=== PATIENT | female | born 1995 | race Hispanic/Latino ===

== ENCOUNTER 2024-02-10 11:17 | Outpatient (CLI) | payer OTHER ==
[~2024-02-10] VITALS: Ht 162.6 cm; Wt 75.4 kg
[2024-02-10] MEDS ORDERED: ASPI81CH33 PO (11:50)
[2024-02-10] MEDS ORDERED: PRENTAB9 PO (11:50)
[2024-02-10] MEDS ORDERED: FOLI400T13 PO (11:50)
[2024-02-10] MEDS ORDERED: GNP250TA9 PO (11:50)
== END 2024-02-10 12:15 | disposition home or self-care (01) ==
LOC: M LDO 11:17
PROVIDERS: ATTEND Obstetrics & Gynecology
DX: O26.892 Other specified pregnancy related conditions, second trimester (principal); R25.2 Cramp and spasm; R10.2 Pelvic and perineal pain; Z3A.19 19 weeks gestation of pregnancy

== ENCOUNTER 2024-03-09 21:05 | Outpatient (CLI) | payer OTHER ==
[~2024-03-09] VITALS: Ht 162.6 cm; Wt 78.3 kg
[~2024-03-09 21:05] MED LIST: ASPI81CH33 PO; FOLI400T13 PO; GNP250TA9 PO; PRENTAB9 PO
[2024-03-09 21:20] VITALS: BP 130/75
[2024-03-09] MEDS ORDERED: PHEN26CR PR (22:05)
[2024-03-09] MEDS ORDERED: COLA100C5 PO (22:05)
== END 2024-03-09 22:00 | disposition home or self-care (01) ==
LOC: M LDO 21:05
PROVIDERS: ATTEND Obstetrics & Gynecology
DX: O26.892 Other specified pregnancy related conditions, second trimester (principal); O22.42 Hemorrhoids in pregnancy, second trimester; N89.8 Other specified noninflammatory disorders of vagina; Z3A.23 23 weeks gestation of pregnancy
CPT/HCPCS: 59025; G0463

== ENCOUNTER 2024-04-25 12:31 | Outpatient (CLI) | payer OTHER ==
[~2024-04-25] VITALS: Ht 162.6 cm; Wt 81.1 kg
[~2024-04-25 12:31] MED LIST changes: +COLA100C5 PO; +PHEN26CR PR
[2024-04-25 14:13] LABS: HEMATOCRIT 38.5 % (36.0-47.0); HEMOGLOBIN 13.1 g/dl (12.0-15.5); MEAN CORPUSCULAR HEMOGLOBIN 30.8 pg (27.0-33.0); MEAN CORPUSCULAR VOLUME 90.6 fl (80.0-96.0); PLATELET COUNT, AUTOMATED 157 10^3/uL (150-450); RED BLOOD COUNT 4.25 10^6/uL (4.00-5.40); WHITE BLOOD COUNT 11.6 10^3/uL (4.0-10.0)
[2024-04-25 14:42] LABS: BLOOD UREA NITROGEN 17 MG/DL (9-23); CALCIUM LEVEL 8.6 MG/DL (8.5-10.1); CARBON DIOXIDE LEVEL 21 MMOL/L (20-31); CHLORIDE LEVEL 110 MMOL/L (98-107); CREATININE FOR GFR 0.58 MG/DL (0.55-1.30); GLOMERULAR FILTRATION RATE > 60.0 (>60); GLUCOSE, FASTING 91 MG/DL (60-100); POTASSIUM SERUM 4.2 MMOL/L (3.5-5.1); SODIUM LEVEL 137 MMOL/L (136-145)
[2024-04-25] MEDS ORDERED: COLA100C5 PO (18:16)
== END 2024-04-25 18:10 | disposition home or self-care (01) ==
LOC: M LDO 12:31
PROVIDERS: ATTEND Obstetrics & Gynecology
DX: O26.893 Other specified pregnancy related conditions, third trimester (principal); O24.419 Gestational diabetes mellitus in pregnancy, unspecified control; R55 Syncope and collapse; Z3A.30 30 weeks gestation of pregnancy
CPT/HCPCS: 36415; 59025; 70486; 80048; 85027; 85460; G0463

== ENCOUNTER → 2024-04-30 | Outpatient (CLI) | payer OTHER | LOC: M WHC 07:03 | PROVIDERS: ATTEND Nurse Practitioner Family | DX: O24.419 Gestational diabetes mellitus in pregnancy, unspecified control (principal); Z3A.31 31 weeks gestation of pregnancy ==

== ENCOUNTER → 2024-05-27 | Outpatient (CLI) | payer OTHER | LOC: M RAD 07:26 | PROVIDERS: ATTEND Nurse Practitioner Family | DX: Z34.83 Encounter for supervision of other normal pregnancy, third trimester (principal) ==

== ENCOUNTER → 2024-06-04 | Outpatient (REF) | payer OTHER ==
[~2024-06-04] MED LIST changes: +ACET-897 PO; +DOCU100C16 PO; +IBUP80TA PO; +OXYC1TAB23 PO; +PERCOCET PO
== END ==
LOC: M SFHCWAGY 12:44
PROVIDERS: ATTEND Nurse Practitioner Family
DX: Z36.89 Encounter for other specified antenatal screening (principal); Z3A.36 36 weeks gestation of pregnancy

== ENCOUNTER 2024-06-12 10:52 | Inpatient (IN) | payer OTHER ==
[2024-06-12] VITALS (28 sets, daily range): BP systolic 131–187; BP diastolic 67–98
[~2024-06-12] VITALS: Ht 162.6 cm; Wt 85.1 kg
[~2024-06-12 10:52] MED LIST changes: -ACET-897 PO; -DOCU100C16 PO; -IBUP80TA PO; -OXYC1TAB23 PO; -PERCOCET PO
[2024-06-12] MEDS ORDERED: ACET-897 PO (11:14)
[2024-06-12 12:17] LABS: TOTAL PROTEIN,RANDOM URINE 26.8 MG/DL (0.0-14.0)
[2024-06-12 12:22] LABS: CREATININE,RANDOM URINE 167.5 MG/DL
[2024-06-12 12:58] LABS: URIC ACID 7.1 MG/DL (3.1-7.8)
[2024-06-12 13:00] LABS: LDH LACTATE DEHYDROGENASE 266 U/L (120-246)
[2024-06-12 13:01] LABS: ALT/SGPT 38 U/L (7.0-40); AST/SGOT 47 U/L (<34); BILIRUBIN,TOTAL 0.2 MG/DL (0.3-1.2); CREATININE FOR GFR 0.82 MG/DL (0.55-1.30); GLOMERULAR FILTRATION RATE > 60.0 (>60)
[2024-06-12 15:41] LABS: HEMATOCRIT 38.2 % (36.0-47.0); MEAN CORPUSCULAR HEMOGLOBIN 30.1 pg (27.0-33.0); MEAN CORPUSCULAR VOLUME 88.4 fl (80.0-96.0); RED BLOOD COUNT 4.32 10^6/uL (4.00-5.40)
[2024-06-12 15:59] LABS: PLATELET COUNT, AUTOMATED 90 10^3/uL (150-450)
[2024-06-12 16:33] LABS: HIV 1&2 SCREEN NEGATIVE (NEGATIVE)
[2024-06-12] MEDS ORDERED: OXYTOCIN INJ 10UNITS/ML 1ML VIAL IV PRN (16:35)
[2024-06-12] MEDS ORDERED: miSOPROStol 25MCG 1/4 TABLET BUC ONE (16:35)
[2024-06-12 16:41] LABS: HEPATITIS C VIRUS ABY INDEX 0.03 INDEX (<0.8)
[2024-06-12] MEDS: miSOPROStol 50MCG 1/2 TABLET BUC ONE (17:04)
[2024-06-12] MEDS ORDERED: LABETALOL 100MG/20ML VIAL As Ordered ONE (17:35)
[2024-06-12] MEDS: LABETALOL 100MG/20ML VIAL IV STA ×3 (17:50→18:31)
[2024-06-12] MEDS: LABETALOL 200 MG TAB PO SCH (21:03)
[2024-06-12] MEDS: miSOPROStol 25MCG 1/4 TABLET BUC ONE (21:10)
[2024-06-13] VITALS (53 sets, daily range): BP systolic 112–191; BP diastolic 55–95
[2024-06-13] MEDS: LABETALOL 100MG/20ML VIAL IV STA ×6 (01:38→18:53)
[2024-06-13] MEDS: miSOPROStol 25MCG 1/4 TABLET BUC ONE (02:37)
[2024-06-13] MEDS: hydrALAZINE 20MG/ML 1ML VIAL IV ONE (03:26)
[2024-06-13] MEDS ORDERED: CARBOPROST TROMETHAMINE 250 MCG/ML AMP IM PRN (08:50)
[2024-06-13] MEDS ORDERED: OXYTOCIN DRIP 30 UNITS in IV 1 EA IV PRN (08:50)
[2024-06-13] MEDS ORDERED: METHYLERGONOVINE MALEATE 0.2MG/ML 1ML VIAL IM PRN (08:50)
[2024-06-13] MEDS ORDERED: LIDOCAINE 1% MDV 20ML VIAL INFIL PRN (08:50)
[2024-06-13] MEDS ORDERED: TRANEXAMIC ACID INJection 1,000 MG in NS 100 ML IV PRN (08:50)
[2024-06-13] MEDS: miSOPROStol 50MCG 1/2 TABLET PO ONE (09:10)
[2024-06-13] MEDS: OXYTOCIN DRIP 30 UNITS in IV 1 EA IV SCH (13:13)
[2024-06-13] MEDS: LR 1,000 ML IV SCH (13:13)
[2024-06-13] MEDS ORDERED: EPIDURAL/PCA KEYS XX PRN (19:50)
[2024-06-13] MEDS ORDERED: ONDANSETRON 4MG 2ML VIAL IV PRN (19:50)
[2024-06-13] MEDS ORDERED: diphenhydrAMINE 50MG/ML VIAL IV PRN (19:50)
[2024-06-13] MEDS ORDERED: ePHEDrine SULFATE 25 MG/5 ML(5MG/ML) SYRINGE IVP PRN (19:50)
[2024-06-13] MEDS ORDERED: FENTANYL/ROPIVACAINE/NACL BAG 100 ML EPIDURAL SCH (19:50)
[2024-06-13] MEDS ORDERED: NALOXONE INJ 0.4MG/1ML VIAL IV PRN (19:50)
[2024-06-13] MEDS: MAG Sulf (L&D) 4 GM/100 ML 4 GM in IV 1 EA IV ONE (19:59)
[2024-06-13 20:05] LABS: HEMATOCRIT 37.4 % (36.0-47.0); HEMOGLOBIN 12.8 g/dl (12.0-15.5); MEAN CORPUSCULAR HEMOGLOBIN 30.3 pg (27.0-33.0); MEAN CORPUSCULAR HGB CONC 34.2 g/dl (32.0-36.5); MEAN CORPUSCULAR VOLUME 88.4 fl (80.0-96.0); RED BLOOD COUNT 4.23 10^6/uL (4.00-5.40); WHITE BLOOD COUNT 11.7 10^3/uL (4.0-10.0)
[2024-06-13 20:11] LABS: PLATELET COUNT, AUTOMATED 65 10^3/uL (150-450)
[2024-06-13] MEDS: MAG Sulf (OBGYN) 20GM/500ML 20,000 MG in IV 1 EA IV SCH (20:23)
[2024-06-13 20:26] LABS: URIC ACID 7.6 MG/DL (3.1-7.8)
[2024-06-13 20:28] LABS: LDH LACTATE DEHYDROGENASE 344 U/L (120-246)
[2024-06-13 20:35] LABS: ALT/SGPT 112 U/L (7.0-40); AST/SGOT 123 U/L (<34); BILIRUBIN,TOTAL 0.5 MG/DL (0.3-1.2); CREATININE FOR GFR 0.79 MG/DL (0.55-1.30); GLOMERULAR FILTRATION RATE > 60.0 (>60)
[2024-06-13] MEDS: ceFAZolin SODIUM 2 GM in DEXTROSE 5% (D5W) ADV/MINI-BAG 50 ML IV ONE (21:20)
[2024-06-13] MEDS: LR 500 ML IV PRN (21:45)
[2024-06-13] MEDS: BICITRA 30ML SOLN UDC PO ONE (21:46)
[2024-06-13] MEDS: AZITHROMYCIN INJ 500 MG, VIAL MATE ADAPTER 1 EACH in NS 250 ML IV ONE (21:46)
[2024-06-13] MEDS ORDERED: ONDANSETRON 4MG 2ML VIAL As Ordered ONE (22:08)
[2024-06-13] MEDS ORDERED: MORPHINE PRES-FREE INJ 10 MG/10 ML VIAL As Ordered ONE (22:08)
[2024-06-13] MEDS ORDERED: PHENYLephrine 500MCG 5ML (100MCG/ML) SYRINGE As Ordered ONE (22:25)
[2024-06-13] MEDS ORDERED: TRANEXAMIC ACID 100 MG/ML 10ML VIAL As Ordered ONE (22:25)
[2024-06-13 22:49] LABS: CORD GAS ABE A -5.9; CORD GAS ABE V -6.8; CORD GAS HCO3 A 21.9 MMOL/L; CORD GAS HCO3 V 18.5 MMOL/L; CORD GAS O2 SAT A 51.9 %; CORD GAS PCO2 V 36.7 mmHg; CORD GAS PH A 7.251 UNITS; CORD GAS PH V 7.32 UNITS; CORD GAS PO2 A 23.9 mmHg; CORD GAS PO2 V 49.6 mmHg; CORD GAS SBC A 18.6 MMOL/L; CORD GAS SBC V 18.9 MMOL/L; CORD GAS TCO2 A 23.5 MMOL/L; CORD GAS TCO2 V 19.6 MMOL/L
[2024-06-13] MEDS ORDERED: ePHEDrine SULFATE 25 MG/5 ML(5MG/ML) SYRINGE As Ordered ONE (23:00)
[2024-06-13] MEDS ORDERED: OXYTOCIN 30UNITS IN 0.9% NaCl 500ML IV BAG As Ordered ONE (23:09)
[2024-06-13] MEDS ORDERED: MOM 30ML SUSPENSION UDC PO PRN (23:25)
[2024-06-13] MEDS ORDERED: ACETAMINOPHEN 500 MG TAB PO PRN (23:25)
[2024-06-13] MEDS ORDERED: SIMETHICONE 80MG CHEW TAB PO PRN (23:25)
[2024-06-13] MEDS: LOMOTIL 2.5MG/0.025MG TABLET PO ONE (23:45)
[2024-06-14] VITALS (16 sets, daily range): BP systolic 107–134; BP diastolic 56–77; TEMP 97.6; O2SAT 96–100
[2024-06-14] MEDS ORDERED: KETOROLAC 30 MG/ML 1ML VIAL As Ordered ONE (00:49)
[2024-06-14] MEDS: KETOROLAC 30 MG/ML 1ML VIAL IV SCH (00:51)
[2024-06-14 06:22] LABS: HEMATOCRIT 35.8 % (36.0-47.0); HEMOGLOBIN 12.4 g/dl (12.0-15.5); MEAN CORPUSCULAR HEMOGLOBIN 30.6 pg (27.0-33.0); MEAN CORPUSCULAR HGB CONC 34.6 g/dl (32.0-36.5); MEAN CORPUSCULAR VOLUME 88.4 fl (80.0-96.0); RED BLOOD COUNT 4.05 10^6/uL (4.00-5.40); WHITE BLOOD COUNT 14.2 10^3/uL (4.0-10.0)
[2024-06-14 06:30] LABS: PLATELET COUNT, AUTOMATED 61 10^3/uL (150-450)
[2024-06-14] MEDS: PRENATAL VITAMINS CHEWABLE TABLET PO SCH (09:34)
[2024-06-14] MEDS: FERROUS SULFATE 325MG TAB PO SCH (09:34)
[2024-06-14] MEDS: DOCUSATE SODIUM 100MG CAPSULE PO SCH (09:34)
[2024-06-14] MEDS: RHOGAM 300MCG (1500IU) INJ IM SCH (10:57)
[2024-06-15] MEDS: IBUPROFEN 800 MG TAB PO SCH (01:51)
[2024-06-15 02:00] VITALS: BP 127/70; O2SAT 95
[2024-06-15] MEDS ORDERED: PERCOCET 5MG/325MG TAB PO PRN (04:25)
[2024-06-15] MEDS: PERCOCET 5MG/325MG TAB PO PRN (04:47)
[2024-06-15 06:00] VITALS: BP 127/63; O2SAT 96
[2024-06-15] MEDS: MEASLES,MUMPS,RUBELLA VACCINE INJ (MMR-II) SC.IMMUN ONE (09:00)
[2024-06-15 10:00] VITALS: BP 134/67; O2SAT 97
[2024-06-15 13:20] VITALS: BP 137/70; O2SAT 97
[2024-06-15] MEDS ORDERED: OXYC1TAB23 PO (14:04)
[2024-06-15] MEDS ORDERED: COLA100C5 PO (14:04)
[2024-06-15] MEDS ORDERED: IBUP80TA PO (14:04)
[2024-06-15] MEDS: BOOSTRIX VACCINE (TETANUS/DIPHTH/ACEL. PERTUSSIS) 0.5ML SYR IM.IMMUN ONE (14:30)
[2024-06-15] MEDS: FLUZONE VACCINE TRIVALENT PF(2024-25) 0.5ML SYRINGE IM.IMMUN ONE (14:30)
== END 2024-06-15 16:00 | disposition home or self-care (01) | DRG 773 ==
LOC: M LDO 10:52 → M LDI 13:22 → M OBS 06-14 15:09
PROVIDERS: ADMIT Obstetrics & Gynecology; ATTEND Obstetrics & Gynecology
PROC: 3E0P7GC Introduction of Other Therapeutic Substance into Female Reproductive, Via Natural or Artificial Opening (ICD-10-PCS; 2024-06-12)
PROC: 10D00Z1 Extraction of Products of Conception, Low, Open Approach (ICD-10-PCS; principal; 2024-06-13 22:00)
DX: O14.24 HELLP syndrome, complicating childbirth (principal); Z3A.37 37 weeks gestation of pregnancy; Z37.0 Single live birth

== ENCOUNTER 2024-06-17 20:43 | Observation (INO) | payer OTHER ==
[~2024-06-17] VITALS: Ht 162.6 cm; Wt 82.3 kg
[~2024-06-17 20:43] MED LIST changes: +ACET-897 PO; +IBUP80TA PO; +OXYC1TAB23 PO
[2024-06-17 20:56] VITALS: TEMP 98
[2024-06-17] MEDS: NIFEdipine 30MG XL TAB PO SCH (21:00)
[2024-06-17] MEDS: hydrALAZINE 20MG/ML 1ML VIAL IV ONE (21:20)
[2024-06-17 21:22] LABS: BASO # 0.1 10^3/uL (0.0-0.2); BASO % 0.5 % (0.0-1.0); EOS # 0.3 10^3/uL (0.0-0.5); EOS % 2.9 % (0.0-3.0); HEMATOCRIT 34.7 % (36.0-47.0); HEMOGLOBIN 11.6 g/dl (12.0-15.5); LYMPH # 2.6 10^3/uL (1.5-5.0); LYMPH % 24.4 % (24.0-44.0); MEAN CORPUSCULAR HEMOGLOBIN 30.6 pg (27.0-33.0); MEAN CORPUSCULAR HGB CONC 33.4 g/dl (32.0-36.5); MEAN CORPUSCULAR VOLUME 91.6 fl (80.0-96.0); MONO # 0.5 10^3/uL (0.0-0.8); MONO % 4.2 % (2.0-8.0); NEUTROPHILS # 7.3 10^3/uL (1.5-8.5); NEUTROPHILS % 67.3 % (36.0-66.0); PLATELET COUNT, AUTOMATED 179 10^3/uL (150-450); RED BLOOD COUNT 3.79 10^6/uL (4.00-5.40); WHITE BLOOD COUNT 10.8 10^3/uL (4.0-10.0)
[2024-06-17 21:40] LABS: INR 0.84; PARTIAL THROMBOPLASTIN TIME 25.9 SECONDS (24.8-34.2); PROTHROMBIN TIME 11.8 SECONDS (12.5-14.5)
[2024-06-17] MEDS: hydrALAZINE 20MG/ML 1ML VIAL IV SCH (21:49)
[2024-06-17 21:53] LABS: ALBUMIN 2.5 G/DL (3.2-5.2); ALKALINE PHOSPHATASE 122 U/L (35-104); ALT/SGPT 83 U/L (7.0-40); AST/SGOT 64 U/L (<34); BILIRUBIN,TOTAL 0.3 MG/DL (0.3-1.2); BLOOD UREA NITROGEN 13 MG/DL (9-23); CALCIUM LEVEL 8.6 MG/DL (8.5-10.1); CARBON DIOXIDE LEVEL 22 MMOL/L (20-31); CHLORIDE LEVEL 103 MMOL/L (98-107); GLOMERULAR FILTRATION RATE > 60.0 (>60); GLUCOSE, FASTING 81 MG/DL (60-100); MAGNESIUM LEVEL 1.7 MG/DL (1.8-2.4); POTASSIUM SERUM 4.7 MMOL/L (3.5-5.1); SODIUM LEVEL 137 MMOL/L (136-145); TOTAL PROTEIN 6.5 G/DL (5.7-8.2)
[2024-06-17] MEDS: IBUPROFEN 800 MG TAB PO SCH (22:00)
[2024-06-17] MEDS ORDERED: SIMETHICONE 80MG CHEW TAB PO PRN (22:20)
[2024-06-17] MEDS ORDERED: IBUP80TA PO (22:42)
[2024-06-17] MEDS ORDERED: PERCOCET PO (22:42)
[2024-06-17] MEDS ORDERED: DOCU100C16 PO (22:43)
[2024-06-17] MEDS ORDERED: HOME MED LIST COMPLETE! XX SCH (22:45)
[2024-06-17] MEDS: LR 1,000 ML IV SCH (22:57)
[2024-06-17 23:15] VITALS: BP 150/72; O2SAT 98
[2024-06-17 23:22] LABS: KETONE, URINE AUTO RFX NEGATIVE (NEGATIVE); MUCUS, URINE RFX SMALL (NEGATIVE); NITRITE, URINE AUTO RFX NEGATIVE (NEGATIVE); RBC, URINE AUTO RFX 82 /HPF (0-3); SQUAM EPITHELIAL CELL UR AURFX 7 /HPF (0-6); TRANSITIONAL EPITHELIAL AU RFX 1 /HPF
[2024-06-18] VITALS (23 sets, daily range): BP systolic 120–186; BP diastolic 58–100; O2SAT 95–98
[2024-06-18 00:01] LABS: LEUKOCYTE ESTERASE UR AUTO RFX 1+ (NEGATIVE); WBC, URINE AUTO RFX 14 /HPF (0-3)
[2024-06-18] MEDS: LABETALOL 100MG TAB PO SCH ×3 (00:14→22:58)
[2024-06-18 06:28] LABS: HEMATOCRIT 30.9 % (36.0-47.0); HEMOGLOBIN 10.4 g/dl (12.0-15.5); MEAN CORPUSCULAR HEMOGLOBIN 30.4 pg (27.0-33.0); MEAN CORPUSCULAR HGB CONC 33.7 g/dl (32.0-36.5); MEAN CORPUSCULAR VOLUME 90.4 fl (80.0-96.0); PLATELET COUNT, AUTOMATED 185 10^3/uL (150-450); RED BLOOD COUNT 3.42 10^6/uL (4.00-5.40); WHITE BLOOD COUNT 8.5 10^3/uL (4.0-10.0)
[2024-06-18] MEDS: DOCUSATE SODIUM 100MG CAPSULE PO SCH (08:10)
[2024-06-18] MEDS: NIFEdipine 30MG XL TAB PO SCH (17:43)
[2024-06-18] MEDS: hydrALAZINE 20MG/ML 1ML VIAL IV STA ×2 (19:31→21:16)
[2024-06-19 06:01] VITALS: BP 125/72; O2SAT 100
[2024-06-19 06:32] VITALS: BP 125/72
[2024-06-19 06:49] LABS: HEMATOCRIT 32.3 % (36.0-47.0); HEMOGLOBIN 10.8 g/dl (12.0-15.5); MEAN CORPUSCULAR HEMOGLOBIN 30.5 pg (27.0-33.0); MEAN CORPUSCULAR HGB CONC 33.4 g/dl (32.0-36.5); MEAN CORPUSCULAR VOLUME 91.2 fl (80.0-96.0); PLATELET COUNT, AUTOMATED 233 10^3/uL (150-450); RED BLOOD COUNT 3.54 10^6/uL (4.00-5.40)
[2024-06-19 07:03] LABS: URIC ACID 6.1 MG/DL (3.1-7.8)
[2024-06-19 07:05] LABS: LDH LACTATE DEHYDROGENASE 332 U/L (120-246)
[2024-06-19 07:06] LABS: ALT/SGPT 56 U/L (7.0-40); AST/SGOT 23 U/L (<34); BILIRUBIN,TOTAL 0.3 MG/DL (0.3-1.2); GLOMERULAR FILTRATION RATE > 60.0 (>60)
[2024-06-19 10:00] VITALS: BP 144/82; O2SAT 97
[2024-06-19] MEDS ORDERED: LABE100T6 PO (12:21)
[2024-06-19] MEDS ORDERED: NIFE1TAB52 PO (12:21)
== END 2024-06-19 13:30 | disposition home or self-care (01) ==
LOC: M ED 20:43 → INTOOBSV 20:44 → M OBS 20:44
PROVIDERS: ADMIT Obstetrics & Gynecology; ATTEND Obstetrics & Gynecology
DX: O14.25 HELLP syndrome, complicating the puerperium (principal); Z79.899 Other long term (current) drug therapy
CPT/HCPCS: 36415; 71045; 80053; 81001; 82247; 83615; 83735; 84450; 84460; 84484; 84550; 85025; 85027; 85384; 85610; 85730; 87086; 87486; 87581; 87633; 87798; 93005; 96361; 96374; 96376; 99285; J0360

== ENCOUNTER 2024-07-19 11:24 | Emergency (ER) | payer OTHER ==
[~2024-07-19] VITALS: Ht 162.6 cm; Wt 75.3 kg
[~2024-07-19 11:24] MED LIST changes: +DOCU100C16 PO; +LABE100T6 PO; +NIFE1TAB52 PO; +PERCOCET PO
[2024-07-19 11:29] VITALS: TEMP 97.7
[2024-07-19 14:28] VITALS: BP 116/69; O2SAT 96
[2024-07-19 15:05] LABS: BASO # 0.1 10^3/uL (0.0-0.2); BASO % 1.1 % (0.0-1.0); EOS # 0.8 10^3/uL (0.0-0.5); HEMATOCRIT 39.7 % (36.0-47.0); HEMOGLOBIN 12.7 g/dl (12.0-15.5); LYMPH # 2.2 10^3/uL (1.5-5.0); LYMPH % 29.4 % (24.0-44.0); MEAN CORPUSCULAR HEMOGLOBIN 29.2 pg (27.0-33.0); MEAN CORPUSCULAR VOLUME 91.3 fl (80.0-96.0); MONO # 0.4 10^3/uL (0.0-0.8); MONO % 5.1 % (2.0-8.0); NEUTROPHILS % 53.1 % (36.0-66.0); PLATELET COUNT, AUTOMATED 228 10^3/uL (150-450); RED BLOOD COUNT 4.35 10^6/uL (4.00-5.40); WHITE BLOOD COUNT 7.4 10^3/uL (4.0-10.0)
[2024-07-19 15:35] LABS: ALBUMIN 3.9 G/DL (3.2-5.2); ALKALINE PHOSPHATASE 114 U/L (35-104); ALT/SGPT 15 U/L (7.0-40); AST/SGOT 16 U/L (<34); BILIRUBIN,DIRECT < 0.1 MG/DL (<0.4); BILIRUBIN,TOTAL 0.3 MG/DL (0.3-1.2); BLOOD UREA NITROGEN 16 MG/DL (9-23); CALCIUM LEVEL 9.4 MG/DL (8.5-10.1); CARBON DIOXIDE LEVEL 24 MMOL/L (20-31); CHLORIDE LEVEL 107 MMOL/L (98-107); CREATININE FOR GFR 0.82 MG/DL (0.55-1.30); GLOMERULAR FILTRATION RATE > 90.0 (>60); GLUCOSE, FASTING 87 MG/DL (60-100); POTASSIUM SERUM 4.6 MMOL/L (3.5-5.1); SODIUM LEVEL 141 MMOL/L (136-145); TOTAL PROTEIN 7.4 G/DL (5.7-8.2)
[2024-07-19] MEDS ORDERED: LABE100T40 PO (15:56)
[2024-07-19] MEDS ORDERED: NIFE1TAB52 PO (15:56)
== END 2024-07-19 16:08 | disposition home or self-care (01) ==
LOC: M ED 11:24
DX: Z76.0 Encounter for issue of repeat prescription (principal); R00.1 Bradycardia, unspecified; Z79.899 Other long term (current) drug therapy

== ENCOUNTER → 2024-10-08 | Outpatient (REF) | payer OTHER ==
[~2024-10-08] MED LIST changes: +LABE100T40 PO
[2024-10-10 14:11] LABS: HPV APTIMA Not Detected (Not Detected)
== END ==
LOC: M PLALAB 12:34
PROVIDERS: ATTEND Obstetrics & Gynecology
DX: Z12.4 Encounter for screening for malignant neoplasm of cervix (principal); R87.615 Unsatisfactory cytologic smear of cervix
CPT/HCPCS: 87624; 88305; G0123